=== PATIENT | male | born 1965 ===

== ENCOUNTER 2021-06-23 15:14 | Inpatient (IN) | payer OTHER ==
[~2021-06-23] VITALS: Ht 182.9 cm; Wt 115.9 kg
[2021-06-23 23:19] LABS: SARS-Cov-2 (COVID-19) PCR, MMC NEGATIVE (NEGATIVE)
--- NOTE | 2021-06-24 03:55 | NUR ---
DILAUDID ADMIN PT REPORTS FEELING LIGHTHEADED AFTER DILAUDID ADMINISTRATION, PT IS REQUESTING TO NOT GET ANYMORE. WILL CTM.
[2021-06-24 04:57] LABS: BASOPHILS ABSOLUTE AUTO 0.04 K/mm3 (0.00-0.23); BASOPHILS PERCENT AUTO 0 % (0-2); EOSINOPHILS ABSOLUTE AUTO 0.07 K/mm3 (0.00-0.68); EOSINOPHILS PERCENT AUTO 1 % (0-6); Hematocrit 48.1 % (37.0-53.0); Hemoglobin 16.8 g/dL (13.5-17.5); IMMATURE GRAN ABSOLUTE AUTO 0.02 K/mm3 (0.00-0.10); IMMATURE GRAN PERCENT AUTO 0 % (0-1); LYMPHOCYTES ABSOLUTE AUTO 2.16 K/mm3 (0.84-5.20); LYMPHOCYTES PERCENT AUTO 24 % (21-46); MONOCYTES ABSOLUTE AUTO 0.78 K/mm3 (0.16-1.47); MONOCYTES PERCENT AUTO 9 % (4-13); Mean Corpuscular HGB 30.9 pg (26.0-34.0); Mean Corpuscular HGB Conc 34.9 g/dL (31.5-36.5); Mean Corpuscular Volume 88 fL (80-100); Mean Platelet Volume 11.7 fL (9.1-12.4); NEUTROPHILS ABSOLUTE AUTO 6.14 K/mm3 (1.96-9.15); NEUTROPHILS PERCENT AUTO 67 % (41-73); Platelet Count 230 K/mm3 (150-400); RDW Coefficient Variation 12.2 % (11.7-14.2); RDW Standard Deviation 39.6 fL (35.1-46.3); Red Blood Cell Count 5.44 M/mm3 (4.30-5.90); White Blood Cell Count 9.21 K/mm3 (4.00-11.30)
[2021-06-24 05:52] LABS: Alanine Aminotransfer (ALT/SGP 50 U/L (12-78); Albumin/Globulin Ratio 0.9 (0.8-1.8); Alk Phos 97 U/L (50-136); Anion Gap 11 mmol/L (6-16); Aspartate Aminotrans (AST/SGOT 25 U/L (12-37); Bilirubin, Total 0.9 mg/dL (0.1-1.0); Blood Urea Nitrogen 36 mg/dL (8-24); Bun/Creatinine Ratio 32.4 (12.0-20.0); CO2, Blood 26 mmol/L (21-32); Chloride, Blood 97 mmol/L (98-108); Creatinine, Blood 1.11 mg/dL (0.60-1.20); Globulin, Blood 3.5 g/dL (2.2-4.0); Glomerular Filtration Rate >60 (60-); Glucose, Blood 97 mg/dL (70-99); Potassium, Blood 2.9 mmol/L (3.5-5.5); Sodium, Blood 134 mmol/L (136-145); Total Protein, Blood 6.5 g/dL (6.4-8.2)
--- NOTE | 2021-06-24 05:53 | NUR ---
SHIFT SUMMARY PT ARRIVED TO THE FLOOR AT 2111, A/O X4, VSS, NPO AT ADMISSION c NG TUBE PLACED IN ER, PER THE PA IN ER THE NG IS PLACED APPROPRIATELY AFTER READING CXR, NG SET TO LIS, PT C/O THROAT DISCOMFORT, ADMINISTERED HURRICANE SPRAY, PT NOW REFUSING ANYMORE STATING IT TASTES AWEFUL AND DOESN'T LAST LONG ENOUGH. DILAUDID GIVEN (SEE EMAR), PT REPORTS NOT WANTING ANYMORE DUE TO IT MAKING HIM FEEL DIZZY, PT OBSERVED AND SATS REMAINED STABLE. NO ACUTE EVENTS THIS SHIFT. CALL LIGHT IN REACH, WILL CTM AND REPORT TO DAY RN.
--- NOTE | 2021-06-24 12:52 | NUR ---
PT DENIES ANY NEEDS AT THIS TIME.
--- NOTE | 2021-06-24 13:42 | NUR ---
PT TO PRE OP
--- NOTE | 2021-06-24 14:13 | NUR ---
PT TRANSFERED TO [facility] VIA [facility] FROM FLOOR. History, Chart, Medications and Allergies reviewed before start of procedure. Lungs clear T/O to Auscultation. Patient confirms NPO status and agrees with scheduled surgery. Pre-Op teaching done. Pt verbalizes understanding.
--- NOTE | 2021-06-24 18:17 | NUR ---
06/24/211816 [employer] ASSUMED CIRCULATING RESPONSIBILITIES AT [id number]
--- NOTE | 2021-06-25 03:44 | NUR ---
IV ACCESS SITES PT RETURNED FROM OR c 2 ADDITIONAL IV ACCESS SITES, 1 IN R WRIST, 1 IN L WRIST.
[2021-06-25 05:03] LABS: BASOPHILS ABSOLUTE AUTO 0.01 K/mm3 (0.00-0.23); BASOPHILS PERCENT AUTO 0 % (0-2); EOSINOPHILS PERCENT AUTO 0 % (0-6); Hemoglobin 16.2 g/dL (13.5-17.5); IMMATURE GRAN ABSOLUTE AUTO 0.06 K/mm3 (0.00-0.10); IMMATURE GRAN PERCENT AUTO 0 % (0-1); LYMPHOCYTES ABSOLUTE AUTO 1.19 K/mm3 (0.84-5.20); LYMPHOCYTES PERCENT AUTO 9 % (21-46); MONOCYTES ABSOLUTE AUTO 0.82 K/mm3 (0.16-1.47); MONOCYTES PERCENT AUTO 6 % (4-13); Mean Corpuscular HGB Conc 34.5 g/dL (31.5-36.5); Mean Corpuscular Volume 90 fL (80-100); Mean Platelet Volume 11.4 fL (9.1-12.4); NEUTROPHILS PERCENT AUTO 85 % (41-73); Platelet Count 226 K/mm3 (150-400); RDW Coefficient Variation 12.2 % (11.7-14.2); RDW Standard Deviation 40.5 fL (35.1-46.3); Red Blood Cell Count 5.23 M/mm3 (4.30-5.90); White Blood Cell Count 13.68 K/mm3 (4.00-11.30)
[2021-06-25 06:00] LABS: Anion Gap 8 mmol/L (6-16); Blood Urea Nitrogen 21 mg/dL (8-24); Bun/Creatinine Ratio 26.8 (12.0-20.0); CO2, Blood 27 mmol/L (21-32); Chloride, Blood 103 mmol/L (98-108); Creatinine, Blood 0.78 mg/dL (0.60-1.20); Glomerular Filtration Rate >60 (60-); Glucose, Blood 103 mg/dL (70-99); Potassium, Blood 3.9 mmol/L (3.5-5.5); Sodium, Blood 138 mmol/L (136-145)
--- NOTE | 2021-06-25 07:08 | NUR ---
SHIFT SUMMARY POD1 VENTRAL HERNIA REPAIR, A/O X4, VSS, NG TUBE IN PLACE c SMALL AMT OF GASTRIC CONTENTS, TOLERATING CHIPS (1 CUP). PAIN MANAGED PER EMAR, STARTED PATIENT ON VERY SMALL DOSE DUE TO PT C/O REACTION TO DILAUDID ADMINISTRATION ON 06/24/21 MAKING HIM FEEL DIZZY, PT WAS ABLE TO HANDLE 10 MCG AND 12.5 MCG DOSES AND REPORTS FEELING LIKE HE COULD TOLERATE THE PRESCRIBED DOSE OF 25 MCG. 60 ML SS DRAINAGE F ROM CORAL DRAIN THIS SHIFT. WATT IN PLACE FROM OR. CALL LIGHT IN REACH, REPORT GIVEN TO DAY RN.
--- NOTE | 2021-06-25 09:09 | NUR ---
PT HAS 2 IV PRESENT TL LEFT ARM WHICH FLUSH EASILY
--- NOTE | 2021-06-25 11:41 | NUR ---
PT STATES FENRANYL DOSE IS TOO MUCH FOR HIM AND IS CAUSING HIM TO FEEL SLIGHTLY WOOZY. CONTINUOUS RATE DECREASED TO 5 MCG. MESSAGE [address]AC[address] TO [address] TOMLINSON REGARDING PATIENT REQUEST TO DECREASE DOSE
--- NOTE | 2021-06-25 17:42 | NUR ---
PT REPORTS PAIN IS CURRENTLY 0/10. PT DENIES NAUSEA. TOLERATING CLEAR LIQUIDS. ABD INCISION WITH MICHELET WITH SCANT DRIED SANGUINOUS DRAINAGE. CORAL WITH SEROUSANGUINOUS OUTPUT
--- NOTE | 2021-06-26 07:43 | NUR ---
VIKKI IS A&OX4. VSS, NO ACUTE EVENTS OVERNIGHT. HE REPORTS ADEQUATE PAIN CONTROL WITH THE FENTANYL CIRCUS TRAIN SUPERVISOR. CORAL PATENT, MICHELET PATENT, ABDOMINAL BINDER TO MIDLINE. TOLERATING SIPS/CHIPS WELL, USING THE URINAL WITHOUT DIFFICULTY. HE IS LYING IN BED WITH THE CALL LIGHT IN REACH. REPORT GIVEN TO DAY SHIFT RN.
--- NOTE | 2021-06-26 17:44 | NUR ---
SHIFT SUMMARY PT IS A/O X4, 1X UP IN ROOM. PT HAS BEEN TOLERATING CLEAR LIQUID DIET AND VOIDING, BUT DENIES FLATUS OR BM TODAY. BT HYPOACTIVE. PT HAS BEEN UP IN CHAIR FOR A FEW HOURS TODAY AND WALKED TO BATHROOM WITH SBA. USING FENTANYL RPG DEVELOPER FOR PAIN CONTROL WHICH IS WORKING WELL. DR BURKS WAS IN TO SEE PT TODAY. MICHELET IN PLACE CDI, CORAL ALSO IN PLACE RLQ WITH 20ML OUT TODAY.
--- NOTE | 2021-06-27 05:51 | NUR ---
SHIFT SUMMARY: VIKKI IS A&OX4. VSS, NO ACUTE EVENTS OVERNIGHT. HE DID REPORT SOME NAUSEA AND DRY HEAVING THIS MORNING FOR WHICH ZOFRAN HAS ALLEVIATED THE SYMPTOMS. HE REPORTS PASSING A SMALL AMOUNT OF FLATUS THIS SHIFT. MANAGER BEHAVIORAL BOLUS HANDLE ONLY, NO CONTINUOUS RATE. HE IS A STANDBY ASSIST TO THE BATHROOM, URINATING WITHOUT DIFFICULTY, NO BM. MICHELET MIDLINE INTACT WITH ABDOMINAL BINDER. HE IS LYING IN BED WITH THE CALL LIGHT IN REACH. WILL REPORT TO DAY SHIFT RN.
--- NOTE | 2021-06-27 18:38 | NUR ---
SHIFT SUMMARY PT HAS BEEN A/O X4, IND IN ROOM. TOLERATING CLEAR LIQUIDS AND VOIDING. PT REPORTS HAVING 4 BM'S TODAY, VARYING IN SIZE. HE HAD SOME NAUSEA THIS MORNING WHICH SUBSIDED AFTER BM'S STARTED. PAIN MANAGED WITH DEMAND-ONLY MIG WELDER. MICHELET IN PLACE, CDI. USING ABD BINDER FOR COMFORT.
--- NOTE | 2021-06-27 21:00 | NUR ---
RECEIVED REPORT AND ASSUMED CARE OF PT. HE IS LYING QUIETLY IN BED, DENIES ANY NEEDS AT THIS TIME. RODNEY.
--- NOTE | 2021-06-28 05:58 | NUR ---
SHIFT SUMMARY: VIKKI IS A&OX4. VSS, NO ACUTE EVENTS OVERNIGHT. HE REPORTS FEELING BETTER SINCE THE RETURN OF BOWEL FUNCTION, NO DIFFICULTIES URINATING. HE IS INDEPENDENT IN THE ROOM, MICHELET INTACT W/DRESSING COMPRESSED, ABDOMINAL BINDER IN PLACE. IVs X 2 PATENT. HE IS LYING IN BED WITH THE CALL LIGHT IN REACH. WILL REPORT TO DAY SHIFT RN.
--- NOTE | 2021-06-28 14:44 | NUR ---
DISCHARGE PT A&O X4. PT PROVIDED WITH VERBAL AND WRITTEN DISCHARGE DIRECTION. PT VERBALIZED UNDERSTANDING. PT TOLERATED A REGULAR DIET PROVIDED @ LUNCH. PT WEANED OFF THE SIGNAL ENGINEER PUMP AND DENIED PAIN T/O SHIFT. PT BOWEL TONES PRESENT, PT REPORTS BOWEL MOVEMENT AND VOIDING WELL. PT ESCORTED OUT TO [facility] VIA WC. VSS. DRESSING C/D/I.
== END 2021-06-28 15:00 | disposition home or self-care (01) | DRG 355 ==
LOC: ER 15:14 → ERHOLD 19:24 → SURS 19:24
PROVIDERS: Surgery; ADMIT Surgery
PROC: 0WUF0JZ Supplement Abdominal Wall with Synthetic Substitute, Open Approach (ICD-10-PCS; principal; 2021-06-24 12:30)
DX: K43.0 Incisional hernia with obstruction, without gangrene (principal); E66.9 Obesity, unspecified; E86.0 Dehydration; Z20.822 Contact with and (suspected) exposure to COVID-19; E86.1 Hypovolemia; Z68.34 Body mass index [BMI] 34.0-34.9, adult
CPT/HCPCS: 36415; 71045; 80048; 80053; 84132; 85025; 96374; 99284-25; A9270; C1781; J0171; J0330; J0690; J1100; J1170; J1650; J1885; J2270; J2370; J2405; J2704; J3010; J3480; J7030; J7120; U0004